=== PATIENT | male | born 1995 | race African-American/Black ===

== ENCOUNTER → 2021-03-16 | Emergency (ER) | payer OTHER ==
[~2021-03-16] VITALS: Ht 175.3 cm; Wt 81.8 kg
[~2021-03-16] MED LIST: KETOROLAC TROMETHAMINE 60 MG/2 ML VIAL IM ONE
[2021-03-16 13:57] VITALS: BP 134/61
== END | disposition home or self-care (01) ==
LOC: EMS 10:50
DX: S20.212A Contusion of left front wall of thorax, initial encounter (principal); V43.64XA Car passenger injured in collision with van in traffic accident, initial encounter; Y93.89 Activity, other specified; Y92.89 Other specified places as the place of occurrence of the external cause; Y99.8 Other external cause status
CPT/HCPCS: 71101; 72040; 72070; 72100; 96372; 99284; J1885